=== PATIENT | female | born 1945 | race Two or more races ===

== ENCOUNTER 2018-06-03 18:12 | Inpatient (IN) | payer MEDICARE, MEDICAID ==
[~2018-06-03] VITALS: Ht 167.6 cm; Wt 84.8 kg
[2018-06-03 21:03] LABS: BASOPHILS % 0.4 % (0.0-2.0); HEMATOCRIT. 35.2 % (36.0-48.0); HEMOGLOBIN. 11.2 g/dL (12.0-16.0); LYMPHOCYTES % 22.3 % (20.0-50.0); MEAN CORPUSCULAR HEMOGLOBIN 28.3 pg (28.0-32.0); MEAN CORPUSCULAR VOLUME 88.6 fL (81.0-99.0); MEAN PLATELET VOLUME 7.6 fl (7.4-10.4); MONOCYTES % 9.5 % (2.0-8.0); NEUTROPHILS % 65.8 % (40.0-76.0); PLATELET 251 x1000/uL (130-400); RED BLOOD CELL COUNT 3.97 mill/uL (4.2-5.4); RED CELL DISTRIBUTION WIDTH 14.2 % (11.6-14.6)
[2018-06-03 21:06] LABS: CHLORIDE 106 mEq/L (98-107)
[2018-06-03 21:10] LABS: ETHANOL BLOOD < 10 mg/dL
[2018-06-03] MEDS ORDERED: IPRATROPIUM/ALBUTEROL 0.5-3(2.5)MG/3ML NEB INH PRN (23:45)
[2018-06-03] MEDS ORDERED: DOCUSATE SODIUM 100MG CAPSULE PO PRN (23:45)
[2018-06-03] MEDS ORDERED: MAGNESIUM/ALUMINUM HYDROXIDE/SIMETHICONE 30ML UDC PO PRN (23:45)
[2018-06-03] MEDS ORDERED: ACETAMINOPHEN 325MG TABLET PO PRN (23:45)
[2018-06-03] MEDS ORDERED: GUAIFENESIN 200MG/10ML SUGAR FREE UDC PO PRN (23:45)
[2018-06-03] MEDS ORDERED: ONDANSETRON HCL 4MG/2ML INJ IV PRN (23:45)
[2018-06-03] MEDS ORDERED: LORAZEPAM 0.5MG TABLET PO PRN (23:45)
[2018-06-04] VITALS (8 sets, daily range): BP systolic 137–228; BP diastolic 70–103
[2018-06-04 01:29] LABS: CHLORIDE 105 mEq/L (98-107)
[2018-06-04] MEDS: CLONIDINE 0.1MG TABLET PO PRN ×3 (01:30→16:38)
[2018-06-04] MEDS ORDERED: CHOL100046 PO (05:02)
[2018-06-04] MEDS ORDERED: ATOR10TA69 PO (05:02)
[2018-06-04] MEDS ORDERED: METF-414 PO (05:02)
[2018-06-04] MEDS ORDERED: TEMA7.5C PO (05:02)
[2018-06-04] MEDS ORDERED: METO-293 PO (05:02)
[2018-06-04] MEDS ORDERED: SENN-22 PO (05:02)
[2018-06-04] MEDS ORDERED: LEVO125T8 PO (05:02)
[2018-06-04] MEDS ORDERED: DONE10TA43 PO (05:02)
[2018-06-04] MEDS ORDERED: GABA-531 PO (05:02)
[2018-06-04] MEDS ORDERED: ESCI10TA PO (05:02)
[2018-06-04] MEDS ORDERED: LOSA50TA20 PO (05:02)
[2018-06-04] MEDS ORDERED: ANAS1TAB7 PO (05:02)
[2018-06-04] MEDS ORDERED: MEMA5TAB7 PO (05:02)
[2018-06-04 06:31] LABS: BASOPHILS % 0.2 % (0.0-2.0); EOSINOPHILS % 1.9 % (0.0-5.0); HEMATOCRIT. 34.1 % (36.0-48.0); HEMOGLOBIN. 11.1 g/dL (12.0-16.0); LYMPHOCYTES % 21.8 % (20.0-50.0); MEAN CORPUSCULAR HEMOGLOBIN 28.9 pg (28.0-32.0); MEAN CORPUSCULAR VOLUME 89.1 fL (81.0-99.0); MONOCYTES % 6.2 % (2.0-8.0); NEUTROPHILS % 69.9 % (40.0-76.0); PLATELET 253 x1000/uL (130-400); RED BLOOD CELL COUNT 3.83 mill/uL (4.2-5.4); RED CELL DISTRIBUTION WIDTH 14.2 % (11.6-14.6)
[2018-06-04 06:55] LABS: LDL CHOLESTEROL 94 mg/dL (5-100)
[2018-06-04 06:56] LABS: CREATINE KINASE 52 IU/L (26-192); HDL CHOLESTEROL 59 mg/dL (40-59)
[2018-06-04 07:01] LABS: CREATINE KINASE MB FRACTION 1.8 ng/mL (0.5-3.6)
[2018-06-04] MEDS: ENOXAPARIN 40MG/0.4ML SYR SUBCUT SCH (07:54)
[2018-06-04] MEDS ORDERED: TEMAZEPAM 15MG CAPSULE PO PRN (12:00)
[2018-06-04] MEDS: CHOLECALCIFEROL (D3) 1000 UNIT TABLET PO SCH (12:28)
[2018-06-04] MEDS: LOSARTAN POTASSIUM 50 MG TABLET PO SCH (12:29)
[2018-06-04] MEDS: LEVOTHYROXINE SODIUM 125MCG TABLET PO SCH (12:29)
[2018-06-04] MEDS: GABAPENTIN 300MG CAPSULE PO SCH (12:29)
[2018-06-04] MEDS: METOCLOPRAMIDE HCL 10MG TABLET PO SCH ×3 (12:29→20:32)
[2018-06-04] MEDS: MEMANTINE HCL 5MG TABLET PO SCH (12:29)
[2018-06-04] MEDS: DONEPEZIL HCL 10MG TABLET PO SCH (12:30)
[2018-06-04 16:12] LABS: CREATINE KINASE 59 IU/L (26-192)
[2018-06-04 16:13] LABS: CREATINE KINASE MB FRACTION 1.8 ng/mL (0.5-3.6)
[2018-06-04] MEDS ORDERED: HYDRALAZINE 20MG/ML VIAL IV PRN (19:30)
[2018-06-04] MEDS: SENNOSIDES 8.6MG TABLET PO SCH (20:32)
[2018-06-04] MEDS: ATORVASTATIN CALCIUM 10MG TABLET PO SCH (20:32)
[2018-06-04] MEDS: HYDRALAZINE 10 MG in SODIUM CHLORIDE 0.9% 49.5 ML IV PRN (22:03)
[2018-06-05] MEDS: CLONIDINE 0.1MG TABLET PO PRN ×3 (00:46→17:51)
[2018-06-05] MEDS: HYDROCODONE/ACETAMINOPHEN 5/325MG TABLET PO PRN ×2 (00:49→15:21)
[2018-06-05] MEDS ORDERED: DEXTROSE 50% WATER 50ML SYRINGE IV PRN (02:30)
[2018-06-05 04:00] VITALS: BP 171/92
[2018-06-05] MEDS: HYDRALAZINE 10 MG in SODIUM CHLORIDE 0.9% 49.5 ML IV PRN (06:09)
[2018-06-05] MEDS: LEVOTHYROXINE SODIUM 125MCG TABLET PO SCH (06:31)
[2018-06-05] MEDS: METOCLOPRAMIDE HCL 10MG TABLET PO SCH ×4 (06:31→21:29)
[2018-06-05] MEDS: BLOOD SUGAR DIAGNOSTIC STRIP TEST SCH ×4 (06:31→21:00)
[2018-06-05] MEDS ORDERED: INSULIN LISPRO 100 UNITS/ML SUBCUT SCH (07:20)
[2018-06-05] MEDS: INSULIN LISPRO (LOW DOSE) 100 UNITS/ML SUBCUT SCH ×4 (07:36→21:00)
[2018-06-05 08:00] VITALS: BP 202/114
[2018-06-05] MEDS: MEMANTINE HCL 5MG TABLET PO SCH (08:39)
[2018-06-05] MEDS: GABAPENTIN 300MG CAPSULE PO SCH (08:39)
[2018-06-05] MEDS: CHOLECALCIFEROL (D3) 1000 UNIT TABLET PO SCH (08:39)
[2018-06-05] MEDS: LOSARTAN POTASSIUM 50 MG TABLET PO SCH (08:39)
[2018-06-05] MEDS: DONEPEZIL HCL 10MG TABLET PO SCH (08:39)
[2018-06-05] MEDS: ENOXAPARIN 40MG/0.4ML SYR SUBCUT SCH (08:40)
[2018-06-05 12:00] VITALS: BP 187/104
[2018-06-05 16:00] VITALS: BP 215/104
[2018-06-05] MEDS ORDERED: HYDRALAZINE HCL 25MG TABLET PO NR (16:30)
[2018-06-05] MEDS ORDERED: LORAZEPAM 0.5MG TABLET PO PRN (19:45)
[2018-06-05 20:00] VITALS: BP_SYST 136
[2018-06-05] MEDS: SENNOSIDES 8.6MG TABLET PO SCH (21:29)
[2018-06-05] MEDS: ATORVASTATIN CALCIUM 10MG TABLET PO SCH (21:29)
[2018-06-06] VITALS: BP 157/84
[2018-06-06 04:00] VITALS: BP 197/89
[2018-06-06] MEDS: CLONIDINE 0.1MG TABLET PO PRN (05:05)
[2018-06-06] MEDS: LEVOTHYROXINE SODIUM 125MCG TABLET PO SCH (06:36)
[2018-06-06] MEDS: METOCLOPRAMIDE HCL 10MG TABLET PO SCH ×3 (06:36→17:00)
[2018-06-06] MEDS: BLOOD SUGAR DIAGNOSTIC STRIP TEST SCH ×4 (06:36→21:00)
[2018-06-06] MEDS: INSULIN LISPRO (LOW DOSE) 100 UNITS/ML SUBCUT SCH ×4 (07:02→21:00)
[2018-06-06 07:13] LABS: BASOPHILS % 0.3 % (0.0-2.0); EOSINOPHILS % 0.9 % (0.0-5.0); HEMATOCRIT. 37.9 % (36.0-48.0); HEMOGLOBIN. 12.5 g/dL (12.0-16.0); LYMPHOCYTES % 17.9 % (20.0-50.0); MEAN CORPUSCULAR HEMOGLOBIN 29.1 pg (28.0-32.0); MEAN CORPUSCULAR VOLUME 88.4 fL (81.0-99.0); MEAN PLATELET VOLUME 7.9 fl (7.4-10.4); MONOCYTES % 6.7 % (2.0-8.0); NEUTROPHILS % 74.2 % (40.0-76.0); PLATELET 273 x1000/uL (130-400); RED BLOOD CELL COUNT 4.29 mill/uL (4.2-5.4); RED CELL DISTRIBUTION WIDTH 14.1 % (11.6-14.6)
[2018-06-06 07:17] LABS: CHLORIDE 104 mEq/L (98-107)
[2018-06-06] MEDS ORDERED: HYDRALAZINE HCL 25MG TABLET PO SCH (07:45)
[2018-06-06] MEDS: ENOXAPARIN 40MG/0.4ML SYR SUBCUT SCH (09:39)
[2018-06-06] MEDS: MEMANTINE HCL 5MG TABLET PO SCH (09:39)
[2018-06-06] MEDS: LOSARTAN POTASSIUM 50 MG TABLET PO SCH ×2 (09:39→21:59)
[2018-06-06] MEDS: DONEPEZIL HCL 10MG TABLET PO SCH (09:39)
[2018-06-06] MEDS: GABAPENTIN 300MG CAPSULE PO SCH (09:39)
[2018-06-06] MEDS: CHOLECALCIFEROL (D3) 1000 UNIT TABLET PO SCH (09:39)
[2018-06-06] MEDS ORDERED: HYDRALAZINE 20MG/ML VIAL IV PRN (11:30)
[2018-06-06] MEDS ORDERED: CLONIDINE 0.2MG TABLET PO PRN (11:30)
[2018-06-06 12:00] VITALS: BP 163/88
[2018-06-06] MEDS ORDERED: POTASSIUM CHLORIDE 20MEQ/PACKET PO SCH (13:00)
[2018-06-06] MEDS: HYDRALAZINE HCL 50MG TABLET PO SCH ×2 (13:16→22:01)
[2018-06-06] MEDS ORDERED: ZOLPIDEM TARTRATE 5MG TABLET PO PRN (14:00)
[2018-06-06] MEDS: AMLODIPINE 10MG TABLET PO SCH ×2 (17:00→21:47)
[2018-06-06 20:00] VITALS: BP 164/84
[2018-06-06] MEDS: ATORVASTATIN CALCIUM 10MG TABLET PO SCH (21:46)
[2018-06-06] MEDS: SENNOSIDES 8.6MG TABLET PO SCH (21:47)
[2018-06-07] VITALS (7 sets, daily range): BP systolic 131–148; BP diastolic 64–99
[2018-06-07] MEDS: METOCLOPRAMIDE HCL 10MG TABLET PO SCH ×5 (00:51→21:41)
[2018-06-07] MEDS: LEVOTHYROXINE SODIUM 125MCG TABLET PO SCH (05:37)
[2018-06-07] MEDS: HYDRALAZINE HCL 50MG TABLET PO SCH ×3 (05:37→21:42)
[2018-06-07] MEDS: BLOOD SUGAR DIAGNOSTIC STRIP TEST SCH ×4 (06:31→21:42)
[2018-06-07] MEDS: INSULIN LISPRO (LOW DOSE) 100 UNITS/ML SUBCUT SCH ×4 (06:32→21:00)
[2018-06-07 06:41] LABS: BASOPHILS % 0.4 % (0.0-2.0); HEMATOCRIT. 43.4 % (36.0-48.0); LYMPHOCYTES % 18.1 % (20.0-50.0); MEAN CORPUSCULAR HEMOGLOBIN 28.4 pg (28.0-32.0); MEAN PLATELET VOLUME 7.7 fl (7.4-10.4); NEUTROPHILS % 73.5 % (40.0-76.0); PLATELET 303 x1000/uL (130-400); RED BLOOD CELL COUNT 4.93 mill/uL (4.2-5.4); RED CELL DISTRIBUTION WIDTH 14.6 % (11.6-14.6)
[2018-06-07 07:42] LABS: CHLORIDE 106 mEq/L (98-107)
[2018-06-07] MEDS: MEMANTINE HCL 5MG TABLET PO SCH (10:09)
[2018-06-07] MEDS: GABAPENTIN 300MG CAPSULE PO SCH (10:10)
[2018-06-07] MEDS: AMLODIPINE 10MG TABLET PO SCH ×2 (10:10→21:41)
[2018-06-07] MEDS: DONEPEZIL HCL 10MG TABLET PO SCH (10:10)
[2018-06-07] MEDS: CHOLECALCIFEROL (D3) 1000 UNIT TABLET PO SCH (10:10)
[2018-06-07] MEDS: LOSARTAN POTASSIUM 50 MG TABLET PO SCH ×2 (10:10→21:41)
[2018-06-07] MEDS: ENOXAPARIN 40MG/0.4ML SYR SUBCUT SCH (10:11)
[2018-06-07] MEDS: ATORVASTATIN CALCIUM 10MG TABLET PO SCH (21:41)
[2018-06-07] MEDS: SENNOSIDES 8.6MG TABLET PO SCH (21:41)
[2018-06-08] VITALS: BP 142/83
[2018-06-08 04:00] VITALS: BP 149/63
[2018-06-08] MEDS: BLOOD SUGAR DIAGNOSTIC STRIP TEST SCH ×4 (06:06→21:00)
[2018-06-08] MEDS: INSULIN LISPRO (LOW DOSE) 100 UNITS/ML SUBCUT SCH ×4 (06:07→21:00)
[2018-06-08] MEDS: HYDRALAZINE HCL 50MG TABLET PO SCH ×3 (06:11→21:55)
[2018-06-08] MEDS: LEVOTHYROXINE SODIUM 125MCG TABLET PO SCH (06:12)
[2018-06-08] MEDS: METOCLOPRAMIDE HCL 10MG TABLET PO SCH ×4 (06:12→21:55)
[2018-06-08 06:55] LABS: BASOPHILS % 0.6 % (0.0-2.0); HEMATOCRIT. 43.1 % (36.0-48.0); HEMOGLOBIN. 13.8 g/dL (12.0-16.0); MEAN CORPUSCULAR VOLUME 90.6 fL (81.0-99.0); MEAN PLATELET VOLUME 7.6 fl (7.4-10.4); MONOCYTES % 8.5 % (2.0-8.0); NEUTROPHILS % 68.9 % (40.0-76.0); PLATELET 289 x1000/uL (130-400); RED BLOOD CELL COUNT 4.76 mill/uL (4.2-5.4); RED CELL DISTRIBUTION WIDTH 14.8 % (11.6-14.6)
[2018-06-08 07:00] LABS: CHLORIDE 105 mEq/L (98-107)
[2018-06-08 08:00] VITALS: BP 150/75
[2018-06-08] MEDS: AMLODIPINE 10MG TABLET PO SCH ×2 (09:12→21:55)
[2018-06-08] MEDS: DONEPEZIL HCL 10MG TABLET PO SCH (09:12)
[2018-06-08] MEDS: LOSARTAN POTASSIUM 50 MG TABLET PO SCH ×2 (09:12→21:55)
[2018-06-08] MEDS: CHOLECALCIFEROL (D3) 1000 UNIT TABLET PO SCH (09:12)
[2018-06-08] MEDS: GABAPENTIN 300MG CAPSULE PO SCH (09:12)
[2018-06-08] MEDS: MEMANTINE HCL 5MG TABLET PO SCH (09:12)
[2018-06-08] MEDS: ENOXAPARIN 40MG/0.4ML SYR SUBCUT SCH (09:13)
[2018-06-08 12:00] VITALS: BP 110/62
[2018-06-08 16:00] VITALS: BP 143/75
[2018-06-08 20:00] VITALS: BP 136/80
[2018-06-08] MEDS: ATORVASTATIN CALCIUM 10MG TABLET PO SCH (21:54)
[2018-06-08] MEDS: SENNOSIDES 8.6MG TABLET PO SCH (21:55)
[2018-06-09 00:01] VITALS: BP 118/70
[2018-06-09 04:00] VITALS: BP 126/51
[2018-06-09] MEDS: HYDRALAZINE HCL 50MG TABLET PO SCH ×2 (06:00→14:00)
[2018-06-09] MEDS: LEVOTHYROXINE SODIUM 125MCG TABLET PO SCH (06:26)
[2018-06-09] MEDS: METOCLOPRAMIDE HCL 10MG TABLET PO SCH ×2 (06:26→14:30)
[2018-06-09] MEDS: BLOOD SUGAR DIAGNOSTIC STRIP TEST SCH ×3 (06:49→17:26)
[2018-06-09] MEDS: INSULIN LISPRO (LOW DOSE) 100 UNITS/ML SUBCUT SCH ×3 (06:49→17:26)
[2018-06-09 07:53] LABS: BASOPHILS % 0.8 % (0.0-2.0); EOSINOPHILS % 0.8 % (0.0-5.0); HEMATOCRIT. 40.5 % (36.0-48.0); HEMOGLOBIN. 13.1 g/dL (12.0-16.0); MEAN CORPUSCULAR VOLUME 89.8 fL (81.0-99.0); MONOCYTES % 8.9 % (2.0-8.0); NEUTROPHILS % 63.5 % (40.0-76.0); PLATELET 305 x1000/uL (130-400); RED BLOOD CELL COUNT 4.51 mill/uL (4.2-5.4)
[2018-06-09 08:09] VITALS: BP 143/72
[2018-06-09 08:41] LABS: FOLIC ACID (FOLATE) SERUM 12.2 ng/mL (>5.38)
[2018-06-09] MEDS: ENOXAPARIN 40MG/0.4ML SYR SUBCUT SCH (09:04)
[2018-06-09] MEDS: GABAPENTIN 300MG CAPSULE PO SCH (09:04)
[2018-06-09] MEDS: DONEPEZIL HCL 10MG TABLET PO SCH (09:04)
[2018-06-09] MEDS: CHOLECALCIFEROL (D3) 1000 UNIT TABLET PO SCH (09:04)
[2018-06-09] MEDS: MEMANTINE HCL 5MG TABLET PO SCH (09:04)
[2018-06-09 09:06] LABS: CHLORIDE 108 mEq/L (98-107)
[2018-06-09] MEDS: LOSARTAN POTASSIUM 50 MG TABLET PO SCH (09:06)
[2018-06-09] MEDS: AMLODIPINE 10MG TABLET PO SCH (09:11)
[2018-06-09 09:13] LABS: TOTAL IRON BINDING CAPACITY 376 ug/dL (250-450)
[2018-06-09] MEDS ORDERED: METO10TA3 PO (11:36)
[2018-06-09] MEDS ORDERED: HYDR-4135 PO (11:36)
[2018-06-09] MEDS ORDERED: AMLO10TA80 PO (11:36)
[2018-06-09] MEDS ORDERED: LOSA50TA3 PO (11:36)
[2018-06-09 12:00] VITALS: BP 128/65
[2018-06-09 16:00] VITALS: BP 103/44
[2018-06-09 16:16] VITALS: BP 136/62
== END 2018-06-09 18:10 | DRG 71 ==
LOC: ER 18:12 → 6EST 23:04 → EDBEDREQ 23:05 → ENRESERV 06-04 00:06 → 8WST 06-06 09:21
PROVIDERS: ADMIT Internal Medicine; ATTEND Internal Medicine
DX: G93.40 Encephalopathy, unspecified (principal); I69.359 Hemiplegia and hemiparesis following cerebral infarction affecting unspecified side; E44.0 Moderate protein-calorie malnutrition; F03.90 Unspecified dementia, unspecified severity, without behavioral disturbance, psychotic disturbance, mood disturbance, and anxiety; E83.42 Hypomagnesemia; D50.9 Iron deficiency anemia, unspecified; I10 Essential (primary) hypertension; M17.0 Bilateral primary osteoarthritis of knee; C50.919 Malignant neoplasm of unspecified site of unspecified female breast; E11.36 Type 2 diabetes mellitus with diabetic cataract; E11.51 Type 2 diabetes mellitus with diabetic peripheral angiopathy without gangrene; E11.65 Type 2 diabetes mellitus with hyperglycemia; E87.6 Hypokalemia; F32.9 Major depressive disorder, single episode, unspecified; F41.0 Panic disorder [episodic paroxysmal anxiety]; G89.29 Other chronic pain; I16.0 Hypertensive urgency; L57.0 Actinic keratosis; M21.619 Bunion of unspecified foot; M21.612 Bunion of left foot; M21.611 Bunion of right foot; M24.572 Contracture, left ankle; M81.0 Age-related osteoporosis without current pathological fracture; Z85.3 Personal history of malignant neoplasm of breast; Z85.850 Personal history of malignant neoplasm of thyroid; Z87.891 Personal history of nicotine dependence; Z93.0 Tracheostomy status; Z68.30 Body mass index [BMI] 30.0-30.9, adult
CPT/HCPCS: 36415; 80048; 80061; 82140; 82550; 82553; 82607; 82728; 82746; 82962; 83540; 83550; 83735; 84443; 84484; 93005; 93306; 93970; 96374; 99285; C1893; J0360; J1650; J1815; J8597